=== PATIENT | male | born 1995 | race Hispanic/Latino ===

== ENCOUNTER 2022-05-04 21:15 | Emergency (ER) | payer MEDICAID, OTHER ==
[~2022-05-04] VITALS: Ht 180.3 cm; Wt 81.6 kg
[2022-05-04] MEDS ORDERED: KETOROLAC 30MG VIAL (30MG/ML) IM ONE (21:30)
[2022-05-04] MEDS ORDERED: PRED20TA3 PO (22:16)
[2022-05-04] MEDS ORDERED: IBUP-2070 PO (22:16)
[2022-05-04 22:49] VITALS: BP 122/56
== END 2022-05-04 22:50 | disposition home or self-care (01) ==
LOC: EDH 21:15
DX: M25.511 Pain in right shoulder (principal); Z79.1 Long term (current) use of non-steroidal anti-inflammatories (NSAID)
CPT/HCPCS: 99283; 73030; 96372; J1885